=== PATIENT | male | born 1975 | race Caucasian/White ===

== ENCOUNTER 2022-12-15 18:22 | Emergency (ER) | payer OTHER ==
[2022-12-15] MEDS ORDERED: Silver Sulfadiazine 1% Crm 50 GM Tube TOP ONE (18:23)
[2022-12-15] MEDS ORDERED: Naloxone 0.4 MG/ML SDV IVPUSH PRN (18:31)
[2022-12-15] MEDS: HYDROmorphone 2 MG/ML SDV IM ONE (18:58)
== END 2022-12-15 19:35 | disposition home or self-care (01) ==
LOC: FB.ED 18:22
DX: T20.212A Burn of second degree of left ear [any part, except ear drum], initial encounter (principal); T23.292A Burn of second degree of multiple sites of left wrist and hand, initial encounter; T23.252A Burn of second degree of left palm, initial encounter; T20.16XA Burn of first degree of forehead and cheek, initial encounter; T22.112A Burn of first degree of left forearm, initial encounter; T24.102A Burn of first degree of unspecified site of left lower limb, except ankle and foot, initial encounter; X08.8XXA Exposure to other specified smoke, fire and flames, initial encounter
CPT/HCPCS: 16020; 96372; 99283; A9270-GY; J1170